=== PATIENT | female | born 1945 | race Caucasian/White ===

== ENCOUNTER 2017-10-20 10:30 | Day surgery (SDC) | payer MEDICARE ==
[~2017-10-20] VITALS: Ht 157.5 cm; Wt 110.4 kg
[~2017-10-20 10:30] MED LIST: AMLO5 PO; ASPI325 PO; BENA20 PO; CITA20 PO; CYAN100 PO; DOXE10 PO; ESTR1 PO; ESTRTP PV; EYE VITAMIN PO; FURO40 PO; HYOS.125 SL; MAGOXI400 PO; METF500 PO; METO50 PO; MILN100T PO; Norco 5-325 Ta1 EACH PO; Norvasc5 MG PO; OMEP20ER PO; Omeprazole20 M1 PO; POTCHL10ER PO; POTCHL20ER PO; PRAM.5 PO; SAVELLA 50 MG PO; Zofran8 MG PO
[2017-10-20] MEDS ORDERED: METF500 (11:23)
[2017-10-20] MEDS ORDERED: TOPI25 PO (11:25)
== END 2017-10-20 12:48 | disposition home or self-care (01) ==
LOC: ORSCSDS 10:30
PROVIDERS: Internal Medicine Gastroenterology
PROC: 0DBP8ZX Excision of Rectum, Via Natural or Artificial Opening Endoscopic, Diagnostic (ICD-10-PCS; principal; 2017-10-20 12:00)
PROC: 0DBN8ZX Excision of Sigmoid Colon, Via Natural or Artificial Opening Endoscopic, Diagnostic (ICD-10-PCS; principal; 2017-10-20 12:00)
PROC: 0DBL8ZX Excision of Transverse Colon, Via Natural or Artificial Opening Endoscopic, Diagnostic (ICD-10-PCS; principal; 2017-10-20 12:00)
DX: Z12.11 Encounter for screening for malignant neoplasm of colon (principal); D12.3 Benign neoplasm of transverse colon; D12.5 Benign neoplasm of sigmoid colon; K62.1 Rectal polyp; K57.30 Diverticulosis of large intestine without perforation or abscess without bleeding; K64.8 Other hemorrhoids; Z80.0 Family history of malignant neoplasm of digestive organs; E66.9 Obesity, unspecified; Z68.41 Body mass index [BMI] 40.0-44.9, adult; E11.9 Type 2 diabetes mellitus without complications; Z79.82 Long term (current) use of aspirin; Z79.84 Long term (current) use of oral hypoglycemic drugs; Z79.899 Other long term (current) drug therapy
CPT/HCPCS: 82947; 88305; J2405; J7120

== ENCOUNTER 2017-12-31 10:21 | Day surgery (SDC) | payer MEDICARE ==
[~2017-12-31] VITALS: Ht 157.5 cm; Wt 117.9 kg
[~2017-12-31 10:21] MED LIST changes: +METF500; +TOPI25 PO
== END 2017-12-31 12:38 | disposition home or self-care (01) ==
LOC: ORSCSDS 10:21
PROVIDERS: Internal Medicine Gastroenterology
PROC: 0DB68ZX Excision of Stomach, Via Natural or Artificial Opening Endoscopic, Diagnostic (ICD-10-PCS; principal; 2017-12-31 11:45)
PROC: 0D758ZZ Dilation of Esophagus, Via Natural or Artificial Opening Endoscopic (ICD-10-PCS; principal; 2017-12-31 11:45)
PROC: 0DB38ZX Excision of Lower Esophagus, Via Natural or Artificial Opening Endoscopic, Diagnostic (ICD-10-PCS; principal; 2017-12-31 11:45)
DX: K22.70 Barrett's esophagus without dysplasia (principal); K31.7 Polyp of stomach and duodenum; K44.9 Diaphragmatic hernia without obstruction or gangrene; K22.2 Esophageal obstruction; E11.9 Type 2 diabetes mellitus without complications; G47.33 Obstructive sleep apnea (adult) (pediatric); I10 Essential (primary) hypertension; Z86.010 Personal history of colon polyps; E66.9 Obesity, unspecified; Z68.42 Body mass index [BMI] 45.0-49.9, adult; Z79.82 Long term (current) use of aspirin; Z79.84 Long term (current) use of oral hypoglycemic drugs; Z79.899 Other long term (current) drug therapy
CPT/HCPCS: 82947; 88305; J7120

== ENCOUNTER 2019-02-24 10:33 | Day surgery (SDC) | payer MEDICARE, OTHER ==
[~2019-02-24] VITALS: Ht 157.5 cm; Wt 122.3 kg
[2019-02-24] MEDS ORDERED: GABA300 (11:15)
== END 2019-02-24 13:05 | disposition home or self-care (01) ==
LOC: ORSCSDS 10:33
PROVIDERS: Anesthesiology
PROC: 3E0R33Z Introduction of Anti-inflammatory into Spinal Canal, Percutaneous Approach (ICD-10-PCS; principal; 2019-02-24 11:45)
DX: M50.322 Other cervical disc degeneration at C5-C6 level (principal); M48.02 Spinal stenosis, cervical region; E11.9 Type 2 diabetes mellitus without complications; F32.9 Major depressive disorder, single episode, unspecified; E66.01 Morbid (severe) obesity due to excess calories; Z68.42 Body mass index [BMI] 45.0-49.9, adult; Z79.84 Long term (current) use of oral hypoglycemic drugs; Z79.82 Long term (current) use of aspirin; Z79.899 Other long term (current) drug therapy; I10 Essential (primary) hypertension
CPT/HCPCS: 82947; J1040; J2250; J3010

== ENCOUNTER → 2019-05-30 | Outpatient (CLI) | payer MEDICARE, OTHER ==
[~2019-05-30] MED LIST changes: +GABA300
== END | disposition home or self-care (01) ==
LOC: LAB SHORT 12:23 → LAB EV 12:23
DX: N39.0 Urinary tract infection, site not specified (principal)
CPT/HCPCS: 87077; 87086; 87186

== ENCOUNTER → 2021-09-19 | Outpatient (CLI) | payer MEDICARE, OTHER | END | disposition home or self-care (01) | LOC: LAB SHORT 16:00 | DX: R30.0 Dysuria (principal) | CPT/HCPCS: 87086 ==

== ENCOUNTER 2025-05-03 05:27 | Day surgery (SDC) | payer OTHER ==
[~2025-05-03] VITALS: Ht 157.5 cm; Wt 125.3 kg
[~2025-05-03 05:27] MED LIST changes: +ALBU90OI INH; +ATOR10; +DILTIAZEM 24HR240 M4 PO; +ELIQUIS5 M2 PO; +METO50ER PO; +POTA10T PO; +PRAMIPEXOLE DIHY1 MG PO; +TRELEGY ELLIPT1 EAC1 INH
--- NOTE | 2025-05-03 07:20 | NUR ---
History, Chart, Medications and Allergies reviewed before start of procedure. Patient States Post-Procedure ride home has been arranged. PT LEFT HER DENTURES AT HOME.
[2025-05-03] MEDS ORDERED: Benzocaine Oral Spray 0.5ML UD ONE (07:33)
--- NOTE | 2025-05-03 07:47 | NUR ---
05/03/25 0747 Vivek Salas MONITOR INTACT WITH CONTINUOUS PULSE OXIMETRY, CONTINUOUS END TITAL CO2, 3-LEAD EKG AND INTERMITTENT BLOOD PRESSURE.Bite Block Placed. O2 VIA POM INTACT THROUGHOUT SEDATION/PROCEDURE. ANESTHESIA PER DR. DAVILA
[2025-05-03 09:13] VITALS: BP 148/93
[2025-05-03] MEDS ORDERED: Ondansetron HCl 2 MG / ML 2ML Vial IV ONE (09:20)
--- NOTE | 2025-05-03 09:47 | NUR ---
05/03/25 0947 Marcin Maria PT VERY SLEEPY WHEN ARRIVING IN STEP DOWN, VSS PT IS IN AFIB, PT TOOK A LONG TIME TO WAKE UP AND BECAUSE OF THE AMOUNT OF SPECIMENS AND AFTERCARE REQUIRED, DR. BARAKAT WANTED TO SPEAK WITH THE PATIENT AND FAMILY. PT C/O ORF PAIN 4/10 IN ABDOMEN AND NAUSEA, OBTAINED V/O DR BARAKAT TO TREAT NAUSEA WITH 4MG iV ZOFRAN, PT REPORTED THAT MEDICINE WAS HELPFUL STILL HAD C/O OF PAIN AND DR BARAKAT INSTRUCTED HER TO TAKE TYLENOL AT HOME DISCHARGE INSTRUCTIONS REVIEWED WITH PATIENT. PATIENT VERBALIZES UNDERSTANDING. COPY GIVEN TO PATIENT TO TAKE HOME. Belongings sent with PatientPATIENT STATES POST-PROCEDURE RIDE HOME HAS BEEN ARRANGED.
--- NOTE | 2025-05-03 15:52 | NUR ---
Patient States Post-Procedure ride home has been arranged. Discharged via wheelchair to private car for ride home. Discharge instructions reviewed with patient. Patient verbalizes understanding. Copy given to patient to take home.
== END 2025-05-03 23:00 | disposition home or self-care (01) ==
LOC: ORSCMMR 05:27 → ORD 07:30 → ORSCMMR 07:30
PROVIDERS: Internal Medicine Gastroenterology
PROC: 0DBH8ZX Excision of Cecum, Via Natural or Artificial Opening Endoscopic, Diagnostic (ICD-10-PCS; principal; 2025-05-03 07:30)
PROC: 0DBK8ZX Excision of Ascending Colon, Via Natural or Artificial Opening Endoscopic, Diagnostic (ICD-10-PCS; principal; 2025-05-03 07:30)
PROC: 0DBM8ZX Excision of Descending Colon, Via Natural or Artificial Opening Endoscopic, Diagnostic (ICD-10-PCS; principal; 2025-05-03 07:30)
PROC: 0DBN8ZX Excision of Sigmoid Colon, Via Natural or Artificial Opening Endoscopic, Diagnostic (ICD-10-PCS; principal; 2025-05-03 07:30)
PROC: 0DBL8ZX Excision of Transverse Colon, Via Natural or Artificial Opening Endoscopic, Diagnostic (ICD-10-PCS; principal; 2025-05-03 07:30)
PROC: 0DBC8ZX Excision of Ileocecal Valve, Via Natural or Artificial Opening Endoscopic, Diagnostic (ICD-10-PCS; principal; 2025-05-03 07:30)
PROC: 0DB48ZX Excision of Esophagogastric Junction, Via Natural or Artificial Opening Endoscopic, Diagnostic (ICD-10-PCS; principal; 2025-05-03 07:30)
DX: K21.9 Gastro-esophageal reflux disease without esophagitis (principal); K22.70 Barrett's esophagus without dysplasia; Z12.11 Encounter for screening for malignant neoplasm of colon; Z86.0101 Personal history of adenomatous and serrated colon polyps; Z80.0 Family history of malignant neoplasm of digestive organs; D12.5 Benign neoplasm of sigmoid colon; D12.4 Benign neoplasm of descending colon; D12.3 Benign neoplasm of transverse colon; D12.2 Benign neoplasm of ascending colon; D12.0 Benign neoplasm of cecum; K44.9 Diaphragmatic hernia without obstruction or gangrene; I48.91 Unspecified atrial fibrillation; Z79.01 Long term (current) use of anticoagulants; G47.33 Obstructive sleep apnea (adult) (pediatric); E11.9 Type 2 diabetes mellitus without complications; Z79.899 Other long term (current) drug therapy; E66.01 Morbid (severe) obesity due to excess calories; Z68.43 Body mass index [BMI] 50.0-59.9, adult
CPT/HCPCS: 82947; 88305; A9270; J2405; J2704; J7120